=== PATIENT | male | born 1980 | race Caucasian/White ===

== ENCOUNTER 2020-10-11 10:19 | Emergency (ER) | payer BC ==
[~2020-10-11] VITALS: Ht 180.3 cm; Wt 124.7 kg
[~2020-10-11 10:19] MED LIST: CYCL10 PO; HYDACE5325 PO; NAPR500 PO
[2020-10-11] MEDS ORDERED: CYCL10 PO (10:46)
[2020-10-11] MEDS ORDERED: NEBI5 PO (10:55)
== END 2020-10-11 11:10 | disposition home or self-care (01) ==
LOC: ER 10:19
DX: M54.5 Low back pain (principal); I10 Essential (primary) hypertension; Z79.899 Other long term (current) drug therapy
CPT/HCPCS: 99283

== ENCOUNTER → 2022-04-27 | Outpatient (CLI) | payer BC ==
[~2022-04-27] MED LIST changes: +NEBI5 PO
== END | disposition home or self-care (01) ==
LOC: LAB SHORT 15:18 → LAB 15:18 → PLD 15:18
DX: L30.8 Other specified dermatitis (principal)
CPT/HCPCS: 88312